=== PATIENT | female | born 1985 | race Asian ===

== ENCOUNTER 2019-12-29 08:52 | Emergency (ER) | payer MEDICAID, SELFPAY ==
[~2019-12-29] VITALS: Ht 154.9 cm; Wt 49.9 kg
[2019-12-29 08:58] VITALS: Ht 154.9 cm; Wt 49.9 kg
[2019-12-29 10:15] VITALS: BP 94/61
[2019-12-29 10:23] LABS: UA SPECIFIC GRAVITY <=1.005 (1.005-1.035); microscopic required? YES; urine erythrocyte 2+ (NEGATIVE)
== END 2019-12-29 11:30 | disposition home or self-care (01) ==
LOC: ED 08:52
PROVIDERS: Emergency Medicine
DX: B34.9 Viral infection, unspecified (principal); Z20.828 Contact with and (suspected) exposure to other viral communicable diseases
CPT/HCPCS: 87804; U0003-CS

== ENCOUNTER 2020-01-03 04:10 | Emergency (ER) | payer MEDICAID, SELFPAY ==
[~2020-01-03] VITALS: Ht 162.6 cm; Wt 51.3 kg
[2020-01-03 04:16] VITALS: Ht 162.6 cm; Wt 51.3 kg
[2020-01-03 05:17] LABS: PLATELET COUNT 315 x10^3mcL (130-400)
[2020-01-03 05:20] LABS: RED CELL DISTRIBUTION WIDTH 15.2 % (11.5-14.5)
[2020-01-03 05:27] LABS: BAND NEUTROPHIL 6 % (0-10); MONOCYTE 11 % (0-7); SEGMENTED NEUTROPHILS 71 % (37-75)
[2020-01-03 05:28] LABS: rbc morphology (normal/abnorm) ABNORMAL (NORMAL); target cell (codocyte) 1+
[2020-01-03 05:29] LABS: CALCIUM 8.5 mg/dL (8.5-10.1); CARBON DIOXIDE 30.4 mmol/L (21-32); CHLORIDE SERUM 95 mmol/L (98-107); CREATININE SERUM 1.2 mg/dL (0.6-1.0); GFR1 55 mL/min; GLUCOSE SERUM 95 mg/dL (74-106); PLATELET MORPHOLOGY PLATELETS NORMAL; POTASSIUM SERUM 3.9 mmol/L (3.5-5.1); SODIUM SERUM 133 mmol/L (136-145)
[2020-01-03 05:34] LABS: ALKALINE PHOSPHATASE 104 U/L (46-116); ALT/SGPT 70 U/L (14-59); AST/SGOT 32 U/L (15-37); BILIRUBIN TOTAL 0.27 mg/dL (0.20-1.00); TOTAL PROTEIN, SERUM 7.1 g/dL (6.4-8.2)
[2020-01-03 05:37] LABS: ALBUMIN 2.6 g/dL (3.4-5.0)
[2020-01-03 06:37] VITALS: BP 96/55
[2020-01-04] MEDS ORDERED: SULFAMETHOXAZOL1 TAB PO (15:44)
[2020-01-04] MEDS ORDERED: ZUPLENZ4 MG MM (15:44)
== END 2020-01-03 06:37 | disposition home or self-care (01) ==
LOC: ED 04:10
PROVIDERS: Emergency Medicine
DX: B96.20 Unspecified Escherichia coli [E. coli] as the cause of diseases classified elsewhere (principal); N39.0 Urinary tract infection, site not specified
CPT/HCPCS: J0696; J2405; J7030; J7060

== ENCOUNTER 2020-01-04 11:49 | Inpatient (IN) | payer OTHER, MEDICAID ==
[~2020-01-04] VITALS: Ht 162.6 cm; Wt 49.2 kg
[2020-01-04 13:19] LABS: microscopic required? NO
[2020-01-04 13:44] LABS: UA SPECIFIC GRAVITY 1.015 (1.005-1.035); urine erythrocyte NEGATIVE (NEGATIVE)
[2020-01-04 13:57] LABS: BASOPHIL % 0.3 % (0-2); PLATELET COUNT 396 x10^3mcL (130-400)
[2020-01-04 14:10] LABS: RED CELL DISTRIBUTION WIDTH 14.6 % (11.5-14.5)
[2020-01-04 14:15] LABS: CALCIUM 9.5 mg/dL (8.5-10.1); CARBON DIOXIDE 25.7 mmol/L (21-32); CHLORIDE SERUM 100 mmol/L (98-107); CREATININE SERUM 0.9 mg/dL (0.6-1.0); GFR1 > 60 mL/min; GLUCOSE SERUM 100 mg/dL (74-106); POTASSIUM SERUM 5.2 mmol/L (3.5-5.1); SODIUM SERUM 134 mmol/L (136-145)
[2020-01-04 14:19] LABS: ALKALINE PHOSPHATASE 90 U/L (46-116); ALT/SGPT 73 U/L (14-59); AST/SGOT 30 U/L (15-37); BILIRUBIN TOTAL 0.4 mg/dL (0.20-1.00); TOTAL PROTEIN, SERUM 8.1 g/dL (6.4-8.2)
[2020-01-04 14:25] LABS: ALBUMIN 2.9 g/dL (3.4-5.0); CHOLESTEROL 109 mg/dL (<200); HDL CHOLESTEROL 20 mg/dL (40-60)
[2020-01-04] MEDS ORDERED: SULFAMETHOXAZOL1 TAB PO (15:44)
[2020-01-04] MEDS ORDERED: ZUPLENZ4 MG MM (15:44)
[2020-01-04 16:44] LABS: FREE T4 1.38 ng/dL (0.76-1.46); FREE THYROXINE INDEX 3.2 ug/dL (1.4-4.5); T4(THYROXINE) 8.9 ug/dL (4.7-13.3)
[2020-01-04 16:45] VITALS: BP 114/64
[2020-01-04 20:45] VITALS: BP 99/63
[2020-01-05 04:59] LABS: T3 TOTAL 0.98 ng/mL
[2020-01-05 05:31] VITALS: BP 100/53
[2020-01-05 06:33] LABS: BASOPHIL % 0.2 % (0-2)
[2020-01-05 06:59] LABS: CALCIUM 8.9 mg/dL (8.5-10.1); CARBON DIOXIDE 25.6 mmol/L (21-32); CHLORIDE SERUM 103 mmol/L (98-107); GFR1 > 60 mL/min; GLUCOSE SERUM 89 mg/dL (74-106); MAGNESIUM 2.4 mg/dL (1.8-2.4); PHOSPHOROUS 3.6 mg/dL (2.5-4.9); SODIUM SERUM 135 mmol/L (136-145)
[2020-01-05 07:02] LABS: PLATELET COUNT 465 x10^3mcL (130-400); RED CELL DISTRIBUTION WIDTH 15.3 % (11.5-14.5)
[2020-01-05 08:40] VITALS: BP 100/52
[2020-01-05 17:34] VITALS: BP 108/66
[2020-01-05 19:15] VITALS: BP 109/77
[2020-01-06 05:40] VITALS: BP 96/56
[2020-01-06 07:27] LABS: BASOPHIL % 0.3 % (0-2)
[2020-01-06 07:30] VITALS: BP 103/63
[2020-01-06 07:41] LABS: RED CELL DISTRIBUTION WIDTH 15.1 % (11.5-14.5)
[2020-01-06 07:52] LABS: CALCIUM 9.3 mg/dL (8.5-10.1); CARBON DIOXIDE 29.8 mmol/L (21-32); CHLORIDE SERUM 98 mmol/L (98-107); GFR1 > 60 mL/min; GLUCOSE SERUM 81 mg/dL (74-106); MAGNESIUM 2.4 mg/dL (1.8-2.4); PHOSPHOROUS 3.8 mg/dL (2.5-4.9); POTASSIUM SERUM 4.3 mmol/L (3.5-5.1); SODIUM SERUM 135 mmol/L (136-145)
[2020-01-06 08:38] LABS: PLATELET COUNT 543 x10^3mcL (130-400)
[2020-01-06 12:09] VITALS: BP 98/60
[2020-01-06 16:42] VITALS: BP 101/62
[2020-01-06 20:58] VITALS: BP 99/61
[2020-01-07 06:22] VITALS: BP 99/55
[2020-01-07 07:02] LABS: BASOPHIL % 0.4 % (0-2)
[2020-01-07 07:03] LABS: RED CELL DISTRIBUTION WIDTH 14.8 % (11.5-14.5)
[2020-01-07 07:04] LABS: PLATELET COUNT 571 x10^3mcL (130-400)
[2020-01-07 07:28] LABS: CALCIUM 9.3 mg/dL (8.5-10.1); CARBON DIOXIDE 32.4 mmol/L (21-32); CHLORIDE SERUM 98 mmol/L (98-107); CREATININE SERUM 0.8 mg/dL (0.6-1.0); GFR1 > 60 mL/min; GLUCOSE SERUM 91 mg/dL (74-106); MAGNESIUM 2.2 mg/dL (1.8-2.4); POTASSIUM SERUM 4.1 mmol/L (3.5-5.1); SODIUM SERUM 135 mmol/L (136-145)
[2020-01-07 07:29] VITALS: BP 96/56
[2020-01-07] MEDS ORDERED: CIPRO500 MG PO (11:23)
[2020-01-07 11:34] VITALS: BP 101/62
[2020-01-07 12:33] VITALS: BP 107/71
== END 2020-01-07 12:57 | disposition home or self-care (01) | DRG 872 ==
LOC: ED 11:49 → MU 15:38
PROVIDERS: Emergency Medicine; ADMIT Internal Medicine; ATTEND Internal Medicine
DX: A41.9 Sepsis, unspecified organism (principal); N39.0 Urinary tract infection, site not specified; E46 Unspecified protein-calorie malnutrition; Z68.1 Body mass index [BMI] 19.9 or less, adult; E87.5 Hyperkalemia; D64.9 Anemia, unspecified; E86.0 Dehydration; Z79.899 Other long term (current) drug therapy
CPT/HCPCS: 84439; 87804; G0378; J0696; J2185; J2405; J7030; Q0092